=== PATIENT | female | born 1960 | race Caucasian/White ===

== ENCOUNTER 2017-04-16 18:09 | Emergency (ER) | payer SELFPAY ==
[~2017-04-16] VITALS: Ht 157.5 cm; Wt 90.7 kg
[2017-04-16] MEDS ORDERED: cloNIDine HCL 0.1 MG TAB ONE (18:18)
[2017-04-16] MEDS ORDERED: cloNIDine HCL 0.1 MG TAB PO ONE (18:30)
[2017-04-16 19:30] LABS: Urine Bacteria NONE SEEN /hpf (None Seen); Urine Blood 2+ /uL (Negative); Urine Specific Gravity 1.019 (1.001-1.035); Urine WBC 1615 /hpf (0 - 5); Urine WBC Clumps PRESENT /hpf (None Seen)
[2017-04-16 21:10] VITALS: BP 200/100
== END 2017-04-16 21:56 | disposition home or self-care (01) ==
LOC: ER 18:09
DX: E11.65 Type 2 diabetes mellitus with hyperglycemia (principal); N39.0 Urinary tract infection, site not specified; I10 Essential (primary) hypertension; I25.810 Atherosclerosis of coronary artery bypass graft(s) without angina pectoris; E78.5 Hyperlipidemia, unspecified; R81 Glycosuria; Z95.1 Presence of aortocoronary bypass graft
CPT/HCPCS: 81001; 82962; 93005